=== PATIENT | female | born 1955 | race Caucasian/White ===

== ENCOUNTER 2022-07-14 14:44 | Emergency (ER) | payer MEDICARE, MEDICAID ==
[2022-07-14] MEDS ORDERED: ceFAZolin 1 GM Vial IM ONE (14:53)
[2022-07-14] MEDS ORDERED: Acetaminophen/HYDROcodone 325-10 MG Tab PO ONE (14:53)
[2022-07-14] MEDS ORDERED: Acetaminophen/HYDROcodone 325-5 MG Tab PO ONE (17:16)
[2022-07-14] MEDS ORDERED: Take Home: Acetaminophen/HYDROcodone 325-5 MG, 5 Tab Pack PO ONE (18:30)
[2022-07-14] MEDS ORDERED: Take Home: Cephalexin 500 MG Cap, 6 Cap Pack PO ONE (18:30)
[2022-07-14 18:51] VITALS: BP 142/72; PULSE 75
== END 2022-07-14 18:50 ==
LOC: MERGE 14:44 → VM.ED 14:44
DX: S32.039A Unspecified fracture of third lumbar vertebra, initial encounter for closed fracture (principal); S80.02XA Contusion of left knee, initial encounter; S80.01XA Contusion of right knee, initial encounter; L03.116 Cellulitis of left lower limb; Z91.041 Radiographic dye allergy status; I11.0 Hypertensive heart disease with heart failure; I50.9 Heart failure, unspecified; K21.9 Gastro-esophageal reflux disease without esophagitis; M19.90 Unspecified osteoarthritis, unspecified site; Z79.82 Long term (current) use of aspirin; Z79.899 Other long term (current) drug therapy; Z87.891 Personal history of nicotine dependence; W18.30XA Fall on same level, unspecified, initial encounter
CPT/HCPCS: 72100; 72131; 73560; 96372; 99284; A9270; J0690

== ENCOUNTER 2023-04-11 01:40 | Inpatient (IN) | payer MEDICARE, MEDICAID ==
[2023-04-11] MEDS: Albuterol/Ipratropium 3.0-0.5 MG/3 ML Neb Soln NEB ONE (02:06)
[2023-04-11] MEDS ORDERED: Naloxone 0.4 MG/ML SDV IVPUSH PRN (04:29)
[2023-04-11] MEDS: methylPREDNISolone Sodium Succinate 125 MG/2 ML SDV IVPUSH ONE (04:35)
[2023-04-11] MEDS: fentaNYL 50 MCG/ML SDV IVPUSH ONE ×2 (04:37→07:19)
[2023-04-11 04:40] LABS: EOSINOPHILS PERCENT AUTO 0.2 % (0.0-4.0); HEMATOCRIT 44.1 % (33.0-47.0); IMMATURE GRAN ABSOLUTE AUTO 0.02 x10^3/uL (0.00-0.07); LYMPHOCYTES ABSOLUTE AUTO 0.7 x10^3/uL (1.0-4.8); LYMPHOCYTES PERCENT AUTO 7.9 % (25.0-50.0); MEAN CORPUSCULAR HGB CONC 31.7 g/dL (32.0-36.0); MEAN CORPUSCULAR VOLUME 97.8 fL (78.0-93.0); MONOCYTES ABSOLUTE AUTO 0.5 x10^3/uL (0.0-0.8); MONOCYTES PERCENT AUTO 5.8 % (2.0-11.0); NEUTROPHILS ABSOLUTE AUTO 7.7 x10^3/uL (1.8-7.7); NEUTROPHILS PERCENT AUTO 85.9 % (50.0-80.0); PLATELET COUNT,PLT 79 x10^3/uL (130-400); RED BLOOD CELL COUNT 4.51 x10^6/uL (4.00-5.50)
[2023-04-11] MEDS: Sodium Chloride 0.9% 1,000 ML IV SCH ×2 (04:46→13:11)
[2023-04-11 05:02] LABS: A/G RATIO 0.9; ALBUMIN 3.6 g/dL (3.4-5.0); ANION GAP 17.6 mmol/L (5-15); BILIRUBIN TOTAL 0.6 mg/dL (0.2-1.0); CALCIUM 8.5 mg/dL (8.5-10.1); EST CRCL DRUG DOSING (CG) 47.79 mL/min; POTASSIUM,K 4.6 mmol/L (3.5-5.1); PROTEIN TOTAL,TP 7.6 g/dL (6.4-8.2)
[2023-04-11] MEDS ORDERED: Acetaminophen/HYDROcodone 325-5 MG Tab PO PRN (09:03)
[2023-04-11] MEDS ORDERED: Loperamide 2 MG Cap PO PRN (09:03)
[2023-04-11] MEDS ORDERED: Non-Formulary Medication 1 Each (Umeclidinium Brm/Vilanterol Tr [Anoro Ellipta 62.5-25 Mcg IH SCH (09:05)
[2023-04-11] MEDS ORDERED: Menthol 10%/Methyl Salicylate 15% 85 GM Tube TOP PRN (09:06)
[2023-04-11] MEDS ORDERED: Enoxaparin 40 MG/0.4 ML Syringe SUBCUT SCH (09:15)
[2023-04-11 10:13] LABS: LIPASE 38 U/L (19-71)
[2023-04-11] MEDS: Albuterol/Ipratropium 3.0-0.5 MG/3 ML Neb Soln NEB SCH (10:28)
[2023-04-11] MEDS: Arformoterol 15 MCG/2 ML Neb Soln NEB SCH (10:28)
[2023-04-11] MEDS: Budesonide 0.5 MG/2 ML Neb Susp NEB SCH (10:28)
[2023-04-11 10:47] LABS: INR 1.1 (0.9-1.1)
[2023-04-11] MEDS: HYDROmorphone 0.5 MG/0.5 ML Syringe IVPUSH PRN (10:49)
[2023-04-11] MEDS: Metoprolol Tartrate 25 MG Tab PO SCH (10:50)
[2023-04-11 11:11] LABS: CORONAVIRUS COVID-19 NAA NEGATIVE (NEGATIVE)
[2023-04-11 11:12] LABS: INFLUENZA A NAA NEGATIVE (NEGATIVE); INFLUENZA B NAA NEGATIVE (NEGATIVE); RESPIRATORY SYNCYTIAL VIR NAA NEGATIVE (NEGATIVE)
[2023-04-11] MEDS: Heparin Sodium 5,000 Units/ML Vial IVPUSH ONE (11:34)
[2023-04-11] MEDS: FLUoxetine 20 MG Cap PO SCH (11:35)
[2023-04-11] MEDS: Aspirin 81 MG Tab.EC PO SCH (11:37)
[2023-04-11] MEDS: Cephalexin 500 MG Cap PO SCH (11:38)
[2023-04-11] MEDS: Iopamidol 755 Mg/ML 100 ML Bottle IVPUSH ONE (11:46)
[2023-04-11] MEDS: Heparin Sodium/0.45% NaCl 25,000 UNITS/500 ML BAG IV SCH (12:20)
[2023-04-11] MEDS: Diclofenac Sodium 1% Gel 100 GM Tube TOP SCH (12:30)
[2023-04-11] MEDS: Gabapentin 300 MG Cap PO SCH (12:31)
[2023-04-11] MEDS: Doxycycline Monohydrate 100 MG Cap PO SCH (12:31)
[2023-04-11 14:13] VITALS: PULSE 81
[2023-04-11 15:15] LABS: BASOPHILS PERCENT AUTO 0.1 % (0.2-1.2); HEMATOCRIT 39.6 % (33.0-47.0); HEMOGLOBIN 12.4 g/dL (12.0-16.0); IMMATURE GRAN ABSOLUTE AUTO 0.03 x10^3/uL (0.00-0.07); LYMPHOCYTES ABSOLUTE AUTO 0.3 x10^3/uL (1.0-4.8); LYMPHOCYTES PERCENT AUTO 2.7 % (25.0-50.0); MEAN CORPUSCULAR HEMOGLOBIN 31.3 pg (26.0-32.0); MEAN CORPUSCULAR HGB CONC 31.3 g/dL (32.0-36.0); MONOCYTES ABSOLUTE AUTO 0.3 x10^3/uL (0.0-0.8); MONOCYTES PERCENT AUTO 3.3 % (2.0-11.0); NEUTROPHILS ABSOLUTE AUTO 9.3 x10^3/uL (1.8-7.7); NEUTROPHILS PERCENT AUTO 93.6 % (50.0-80.0); RED BLOOD CELL COUNT 3.96 x10^6/uL (4.00-5.50); WHITE BLOOD CELL COUNT,WBC 9.9 x10^3/uL (4.0-10.0)
[2023-04-11 15:45] LABS: PLATELET COUNT,PLT 73 x10^3/uL (130-400)
[2023-04-11] MEDS: atorvaSTATin 40 MG Tab PO ONE (15:51)
[2023-04-11] MEDS: Acetaminophen 325 MG Tab PO SCH (15:52)
[2023-04-11 16:21] LABS: O2 SATURATION VENOUS,POC 87 %; PCO2 VENOUS,POC 49 mmHg (41-51); PH VENOUS,POC 7.32 pH (7.32-7.43); PO2 VENOUS,POC 58 mmHg
[2023-04-11 16:22] LABS: HCO3 VENOUS,POC 25 mmol/L (22-29)
[2023-04-11] MEDS: methylPREDNISolone Sodium Succinate 40 MG/1 ML SDV IVPUSH SCH (17:50)
[2023-04-11] MEDS: Albuterol/Ipratropium 3.0-0.5 MG/3 ML Neb Soln INH PRN (17:50)
[2023-04-11 18:10] VITALS: BP 91/40
[2023-04-11] MEDS: Lactulose Soln 10 GM/15 ML 30 ML UD Cup PO SCH (18:26)
[2023-04-11] MEDS ORDERED: ARIPiprazole 5 MG Tab PO SCH (21:00)
[2023-04-11] MEDS ORDERED: traZODone 50 MG Tab PO SCH (21:00)
[2023-04-12] MEDS ORDERED: Lisinopril 10 MG Tab PO SCH (09:00)
[2023-04-12] MEDS ORDERED: FLUOXETINE 10 MG PO SCH (09:00)
[2023-04-12] MEDS ORDERED: Aspirin 81 MG Tab.EC PO SCH (09:00)
== END 2023-04-11 19:00 | disposition short-term general hospital (02) | DRG 280 ==
LOC: VM.ED 01:40 → VM.MS 06:52
PROVIDERS: ADMIT Nurse Practitioner Family; ATTEND Internal Medicine
DX: I21.4 Non-ST elevation (NSTEMI) myocardial infarction (principal); J96.01 Acute respiratory failure with hypoxia; J44.9 Chronic obstructive pulmonary disease, unspecified; F03.93 Unspecified dementia, unspecified severity, with mood disturbance; K74.60 Unspecified cirrhosis of liver; F03.94 Unspecified dementia, unspecified severity, with anxiety; I50.32 Chronic diastolic (congestive) heart failure; Z68.41 Body mass index [BMI] 40.0-44.9, adult; I13.0 Hypertensive heart and chronic kidney disease with heart failure and stage 1 through stage 4 chronic kidney disease, or unspecified chronic kidney disease; J44.1 Chronic obstructive pulmonary disease with (acute) exacerbation; I50.30 Unspecified diastolic (congestive) heart failure; S80.02XA Contusion of left knee, initial encounter; K21.9 Gastro-esophageal reflux disease without esophagitis; M19.90 Unspecified osteoarthritis, unspecified site; M54.9 Dorsalgia, unspecified; G89.29 Other chronic pain; G43.909 Migraine, unspecified, not intractable, without status migrainosus; G62.9 Polyneuropathy, unspecified; E66.9 Obesity, unspecified; K70.30 Alcoholic cirrhosis of liver without ascites; Z96.643 Presence of artificial hip joint, bilateral; W19.XXXA Unspecified fall, initial encounter; S89.92XA Unspecified injury of left lower leg, initial encounter; N18.30 Chronic kidney disease, stage 3 unspecified; S49.92XA Unspecified injury of left shoulder and upper arm, initial encounter; M81.0 Age-related osteoporosis without current pathological fracture; D63.1 Anemia in chronic kidney disease; D69.6 Thrombocytopenia, unspecified; F41.1 Generalized anxiety disorder; R73.03 Prediabetes; G47.00 Insomnia, unspecified; M79.2 Neuralgia and neuritis, unspecified; T84.54XD Infection and inflammatory reaction due to internal left knee prosthesis, subsequent encounter; Z79.51 Long term (current) use of inhaled steroids; Z91.041 Radiographic dye allergy status; Z79.899 Other long term (current) drug therapy; Z79.82 Long term (current) use of aspirin; I25.2 Old myocardial infarction; Z86.73 Personal history of transient ischemic attack (TIA), and cerebral infarction without residual deficits; Z90.89 Acquired absence of other organs; Z98.51 Tubal ligation status; Z98.890 Other specified postprocedural states; Z87.891 Personal history of nicotine dependence
CPT/HCPCS: 0241U; 36415; 70450; 71045; 71275; 73030; 73070; 73501; 73560; 73700; 80053; 82140; 82803; 82947; 83690; 83880; 84484; 85025; 85379; 85610; 85730; 86140; 87070; 93005; 94640; 94760; 93010; 96374; 96375; 99284; 99285-25; A9270-GY; J1170; J1644; J2920; J2930; J3010; J3490; J7030; J7620-GY; Q9967

== ENCOUNTER 2023-10-11 04:23 | Inpatient (IN) | payer MEDICARE, MEDICAID ==
[2023-10-11] MEDS ORDERED: Sodium Chloride 0.9% 10 ML Syringe FLUSH PRN (05:12)
[2023-10-11] MEDS: HYDROmorphone 0.5 MG/0.5 ML Syringe IVPUSH PRN (05:30)
[2023-10-11] MEDS: Albuterol/Ipratropium 3.0-0.5 MG/3 ML Neb Soln NEB ONE (05:30)
[2023-10-11] MEDS: methylPREDNISolone Sodium Succinate 125 MG/2 ML SDV IV ONE (05:30)
[2023-10-11 05:55] LABS: BASOPHILS PERCENT AUTO 0.1 % (0.2-1.2); EOSINOPHILS ABSOLUTE AUTO 0.1 x10^3/uL (0.0-0.5); EOSINOPHILS PERCENT AUTO 0.9 % (0.0-4.0); HEMATOCRIT 43.6 % (33.0-47.0); HEMOGLOBIN 14.1 g/dL (12.0-16.0); IMMATURE GRAN ABSOLUTE AUTO 0.09 x10^3/uL (0.00-0.07); LYMPHOCYTES ABSOLUTE AUTO 0.7 x10^3/uL (1.0-4.8); LYMPHOCYTES PERCENT AUTO 4.7 % (25.0-50.0); MEAN CORPUSCULAR HEMOGLOBIN 32.1 pg (26.0-32.0); MEAN CORPUSCULAR HGB CONC 32.3 g/dL (32.0-36.0); MEAN CORPUSCULAR VOLUME 99.3 fL (78.0-93.0); MONOCYTES ABSOLUTE AUTO 1.2 x10^3/uL (0.0-0.8); NEUTROPHILS ABSOLUTE AUTO 12.7 x10^3/uL (1.8-7.7); NEUTROPHILS PERCENT AUTO 85.7 % (50.0-80.0); PLATELET COUNT,PLT 96 x10^3/uL (130-400); RED BLOOD CELL COUNT 4.39 x10^6/uL (4.00-5.50); WHITE BLOOD CELL COUNT,WBC 14.8 x10^3/uL (4.0-10.0)
[2023-10-11 06:19] LABS: LACTIC ACID 1.4 mmol/L (0.4-2.0)
[2023-10-11 06:22] LABS: HCO3 VENOUS,POC 26 mmol/L (22-29); O2 SATURATION VENOUS,POC 71 %; PCO2 VENOUS,POC 49 mmHg (41-51); PH VENOUS,POC 7.33 pH (7.32-7.43); PO2 VENOUS,POC 40 mmHg
[2023-10-11] MEDS: HYDROmorphone 0.5 MG/0.5 ML Syringe IVPUSH ONE (06:24)
[2023-10-11 06:33] LABS: A/G RATIO 1.06; ALANINE AMINOTRANSFERASE,ALT 21 U/L (14-59); ALBUMIN 3.7 g/dL (3.4-5.0); ALKALINE PHOSPHATASE 111 U/L (46-116); ASPARTATE AMNIOTRANSFERASE,AST 21 U/L (15-37); BILIRUBIN TOTAL 1.1 mg/dL (0.2-1.0); BLOOD UREA NITROGEN,BUN 25 mg/dL (7-18); C-REACTIVE PROTEIN 1.83 mg/dL (<=0.50); CALCIUM 8.6 mg/dL (8.5-10.1); CARBON DIOXIDE,CO2 27 mmol/L (21-32); CHLORIDE,CL 109 mmol/L (98-107); CREATININE 1.3 mg/dL (0.55-1.02); GLUCOSE RANDOM 138 mg/dL (70-99); MAGNESIUM 1.6 mg/dL (1.8-2.4); POTASSIUM,K 3.1 mmol/L (3.5-5.1); PROTEIN TOTAL,TP 7.2 g/dL (6.4-8.2); SODIUM,NA 146 mmol/L (136-145)
[2023-10-11 06:48] LABS: ANION GAP 13.1 mmol/L (5-15); ESTIMATED GFR 45 mL/min (>=60)
[2023-10-11] MEDS: Potassium Chloride Riders 20 MEQ in Premix Bag 1 BAG IV ONE (07:24)
[2023-10-11] MEDS: cefTRIAXone 1 GM Vial IVPUSH ONE (08:25)
[2023-10-11] MEDS: Furosemide 40 MG/4 ML VIAL IV ONE (08:28)
[2023-10-11] MEDS ORDERED: Acetaminophen/HYDROcodone 325-10 MG Tab PO PRN (10:20)
[2023-10-11] MEDS: Potassium Chloride 10 MEQ Tab.ER PO SCH (13:00)
[2023-10-11] MEDS: methylPREDNISolone Sodium Succinate 40 MG/1 ML SDV IVPUSH SCH (13:05)
[2023-10-11] MEDS: Doxycycline Monohydrate 100 MG Cap PO SCH (13:05)
[2023-10-11 13:11] LABS: APPEARANCE,URINE TURBID (CLEAR); BILIRUBIN,URINE SMALL (NEGATIVE); COLOR,URINE YELLOW (YELLOW); GLUCOSE,URINE NEGATIVE (NEGATIVE); KETONES,URINE 15 mg/dL (NEGATIVE); LEUKOCYTE ESTERASE,URINE LARGE (NEGATIVE); NITRITE,URINE NEGATIVE (NEGATIVE); OCCULT BLOOD,URINE SMALL (NEGATIVE); PH,URINE 5.5 (5.0-8.0); PROTEIN,URINE NEGATIVE (NEGATIVE); UROBILINOGEN,URINE 0.2 EU/dL (0.2)
[2023-10-11 13:19] LABS: BACTERIA,URINE MODERATE /HPF (NOT SEEN); MUCUS,URINE NOT SEEN /LPF (NOT SEEN); RBC,URINE NOT SEEN /HPF (NOT SEEN); SQUAMOUS EPITHELIAL CELLS,UR RARE /HPF (NOT SEEN); WBC,URINE PACKED /HPF (NOT SEEN)
[2023-10-11] MEDS: Arformoterol 15 MCG/2 ML Neb Soln NEB SCH (13:20)
[2023-10-11] MEDS: Albuterol/Ipratropium 3.0-0.5 MG/3 ML Neb Soln NEB SCH (13:20)
[2023-10-11 13:24] LABS: ANION GAP 12.8 mmol/L (5-15); CALCIUM 8.4 mg/dL (8.5-10.1); CREATININE 1.9 mg/dL (0.55-1.02); EST CRCL DRUG DOSING (CG) 23.04 mL/min; POTASSIUM,K 3.8 mmol/L (3.5-5.1)
[2023-10-11] MEDS ORDERED: Albuterol/Ipratropium 3.0-0.5 MG/3 ML Neb Soln INH PRN (16:46)
[2023-10-11] MEDS: Sodium Chloride 0.9% 1,000 ML IV SCH (16:50)
[2023-10-11] MEDS ORDERED: Naloxone 0.4 MG/ML SDV IM PRN (17:04)
[2023-10-11] MEDS ORDERED: Bisacodyl 5 MG Tab PO PRN (17:04)
[2023-10-11 17:43] LABS: BASOPHILS PERCENT AUTO 0.1 % (0.2-1.2); EOSINOPHILS PERCENT AUTO 0.1 % (0.0-4.0); HEMATOCRIT 36.3 % (33.0-47.0); HEMOGLOBIN 11.8 g/dL (12.0-16.0); IMMATURE GRAN ABSOLUTE AUTO 0.09 x10^3/uL (0.00-0.07); LYMPHOCYTES ABSOLUTE AUTO 0.5 x10^3/uL (1.0-4.8); LYMPHOCYTES PERCENT AUTO 2.4 % (25.0-50.0); MEAN CORPUSCULAR HEMOGLOBIN 31.9 pg (26.0-32.0); MEAN CORPUSCULAR HGB CONC 32.5 g/dL (32.0-36.0); MEAN CORPUSCULAR VOLUME 98.1 fL (78.0-93.0); MONOCYTES ABSOLUTE AUTO 0.8 x10^3/uL (0.0-0.8); MONOCYTES PERCENT AUTO 3.8 % (2.0-11.0); NEUTROPHILS ABSOLUTE AUTO 18.2 x10^3/uL (1.8-7.7); NEUTROPHILS PERCENT AUTO 93.1 % (50.0-80.0); PLATELET COUNT,PLT 71 x10^3/uL (130-400)
[2023-10-11 17:51] LABS: WHITE BLOOD CELL COUNT,WBC 19.5 x10^3/uL (4.0-10.0)
[2023-10-11] MEDS: Lactulose Soln 10 GM/15 ML 30 ML UD Cup PO SCH (18:00)
[2023-10-11] MEDS: Metoprolol Tartrate 25 MG Tab PO SCH (18:00)
[2023-10-11 19:46] VITALS: BP 101/58; PULSE 75
[2023-10-11] MEDS ORDERED: traZODone 50 MG Tab PO SCH (21:00)
[2023-10-11] MEDS ORDERED: Diclofenac Sodium 1% Gel 100 GM Tube TOP SCH (21:00)
[2023-10-11] MEDS ORDERED: Topiramate 25 MG Tab PO SCH (21:00)
[2023-10-11] MEDS ORDERED: Gabapentin 300 MG Cap PO SCH (21:00)
[2023-10-11] MEDS ORDERED: Acetaminophen 325 MG Tab PO SCH (21:00)
[2023-10-12] MEDS ORDERED: cefTRIAXone 1 GM Vial IVPUSH SCH (09:00)
[2023-10-12] MEDS ORDERED: Aspirin 81 MG Tab.EC PO SCH (09:00)
[2023-10-12] MEDS ORDERED: buPROPion 150 MG Tab.ER PO SCH (09:00)
[2023-10-12] MEDS ORDERED: FLUOXETINE 10 MG PO SCH (09:00)
[2023-10-12] MEDS ORDERED: ARIPiprazole 5 MG Tab PO SCH (09:00)
[2023-10-12] MEDS ORDERED: FLUoxetine 20 MG Cap PO SCH (09:00)
== END 2023-10-11 20:28 | disposition short-term general hospital (02) | DRG 534 ==
LOC: VM.ED 04:23 → VM.MS 09:05
PROVIDERS: ADMIT Internal Medicine; ATTEND Internal Medicine
DX: S72.402A Unspecified fracture of lower end of left femur, initial encounter for closed fracture (principal); S82.192A Other fracture of upper end of left tibia, initial encounter for closed fracture; S72.351A Displaced comminuted fracture of shaft of right femur, initial encounter for closed fracture; I50.9 Heart failure, unspecified; J44.1 Chronic obstructive pulmonary disease with (acute) exacerbation; I50.32 Chronic diastolic (congestive) heart failure; N39.0 Urinary tract infection, site not specified; F03.B18 Unspecified dementia, moderate, with other behavioral disturbance; F03.B3 Unspecified dementia, moderate, with mood disturbance; F03.B4 Unspecified dementia, moderate, with anxiety; Z68.41 Body mass index [BMI] 40.0-44.9, adult; E72.20 Disorder of urea cycle metabolism, unspecified; I13.0 Hypertensive heart and chronic kidney disease with heart failure and stage 1 through stage 4 chronic kidney disease, or unspecified chronic kidney disease; S72.401A Unspecified fracture of lower end of right femur, initial encounter for closed fracture; M81.0 Age-related osteoporosis without current pathological fracture; E66.9 Obesity, unspecified; K70.30 Alcoholic cirrhosis of liver without ascites; M19.90 Unspecified osteoarthritis, unspecified site; M17.12 Unilateral primary osteoarthritis, left knee; F41.1 Generalized anxiety disorder; G47.00 Insomnia, unspecified; S80.12XA Contusion of left lower leg, initial encounter; D69.6 Thrombocytopenia, unspecified; G43.909 Migraine, unspecified, not intractable, without status migrainosus; N32.81 Overactive bladder; G62.9 Polyneuropathy, unspecified; E87.6 Hypokalemia; N18.31 Chronic kidney disease, stage 3a; D50.0 Iron deficiency anemia secondary to blood loss (chronic); I25.2 Old myocardial infarction; T38.0X5A Adverse effect of glucocorticoids and synthetic analogues, initial encounter; Z91.041 Radiographic dye allergy status; Z79.82 Long term (current) use of aspirin; Z96.649 Presence of unspecified artificial hip joint; Z90.89 Acquired absence of other organs; Z79.899 Other long term (current) drug therapy; W01.0XXA Fall on same level from slipping, tripping and stumbling without subsequent striking against object, initial encounter
CPT/HCPCS: 36415; 51702; 71045; 72170; 73590-LT; 73590-RT; 80048; 80053; 81001; 82140; 82803; 83605; 83735; 83880; 84484; 85025; 86140; 87040; 87070; 87086; 96365; 96375; 96376; 99285-25; A9270-GY; J0696; J1170; J1940; J2919; J3475; J3480; J3490; J7030; J7620-GY